=== PATIENT | female | born 1980 | race American Indian/Alaskan Native ===

== ENCOUNTER 2020-08-07 00:08 | Emergency (ER) | payer OTHER ==
[2020-08-07] MEDS ORDERED: SODIUM CHLORIDE 0.9% 1000 ML 1,000 ML IV ONE (02:50)
--- NOTE | 2020-08-07 04:00 | XRay Report ---
CHEST 2 VIEWS INDICATION / CLINICAL INFORMATION: chest pain. COMPARISON: None available. FINDINGS: SUPPORT DEVICES: None. HEART / MEDIASTINUM: No significant abnormality. LUNGS / PLEURA: No significant pulmonary or pleural abnormality. No pneumothorax. ADDITIONAL FINDINGS: No significant additional findings. IMPRESSION: 1. No acute findings. Signer Name: Kameron Rayo MD Signed: 08/07/2020 3:56 AM Workstation Name: [id number]
--- NOTE | 2020-08-07 04:02 | Cat Scan Report ---
CT HEAD WITHOUT CONTRAST INDICATION / CLINICAL INFORMATION: Headache. TECHNIQUE: All CT scans at this location are performed using CT dose reduction for ALARA by means of automated e xposure control. COMPARISON: None available. FINDINGS: HEMORRHAGE: None. EXTRA-AXIAL SPACES: Normal in size and morphology for the patient's age. VENTRICULAR SYSTEM: Normal in size and morphology for the patient's age. CEREBRAL PARENCHYMA: No significant abnormality. No acute territorial infarct. MIDLINE SHIFT OR HERNIATION: None. CEREBELLUM / BRAINSTEM: No significant abnormality. ORBITS: Normal as visualized. SOFT TISSUES of HEAD: No significant abnormality. CALVARIUM: No significant abnormality. PARANASAL SINUSES / MASTOID AIR CELLS: Normal as visualized. ADDITIONAL FINDINGS: None. IMPRESSION: 1. No acute intracranial abnormality. Signer Name: Kameron Rayo MD Signed: 08/07/2020 3:58 AM Workstation Name: [id number]
[2020-08-07 04:16] LABS: Basophils % (Auto) 0.4 % (0.0-1.8); Hematocrit 34.9 % (30.3-42.9); Hemoglobin 12.2 gm/dl (10.1-14.3); Lymphocytes % (Auto) 24.6 % (13.4-35.0); Mean Corpuscular HGB Conc 35 % (30-34); Mean Corpuscular Volume 86 fl (79-97); Monocytes # (Auto) 0.7 K/mm3 (0.0-0.8); Monocytes % (Auto) 7.9 % (0.0-7.3); Platelet Count 296 K/mm3 (140-440); Red Blood Count 4.09 M/mm3 (3.65-5.03); Red Cell Distribution Width 15.8 % (13.2-15.2)
[2020-08-07 04:36] LABS: Erythrocyte Sedimentation Rate 38 mm/Hr (0-20)
[2020-08-07 04:46] LABS: Alanine Aminotransferase 16 units/L (7-56); Albumin 4.3 g/dL (3.9-5); Blood Urea Nitrogen 7 mg/dL (7-17); Calcium 9.3 mg/dL (8.4-10.2); Hemolysis Index 7
[2020-08-07] MEDS ORDERED: KETOROLAC 30 MG/1 ML INJ IV ONE (04:46)
[2020-08-07] MEDS ORDERED: diphenhydrAMINE 50 MG/ML VIAL IV ONE (04:46)
[2020-08-07] MEDS ORDERED: METOCLOPRAMIDE 10 MG/2 ML INJ IV ONE (04:46)
[2020-08-07 04:48] LABS: BUN/Creatinine Ratio 12
--- NOTE | 2020-08-07 05:02 | Emergency Department Report ---
ED Headache HPI - General Chief Complaint: Headache Stated Complaint: HEADACHE/HIGH BP/RAPID HR Time Seen by Provider: 08/07/20 02:50 Source: patient - History of Present Illness Initial Comments: 40-year-old F [place]ian female with past history of hypertension presents emerge department complaining of 6-week history of progressively worsening waxing and waning headaches which over the last couple weeks have worsened in symptoms. She now reports having various episodes presyncope and blurred vision and lack of response to [id number] medication treatments. Reports no fever, chills, sweats, no trauma, no chest pain or palpitations. Quality: moderate Head Injury Location: temporal, occipital Associated Symptoms: denies: confusion, fatigue, facial pain, nausea/vomiting, nasal drainage, seizures, sinus infection, vision changes, weakness Allergies/Adverse Reactions: Allergies No Known Allergies Allergy (Unverified 08/07/20 00:46) Home Medications: Ambulatory Orders Butalb/Acetaminophen/Caffeine [Fioricet 50-300-40 mg CAP] 1 cap PO Q6HR PRN #14 cap 08/07/20 ED Review of Systems ROS: Stated complaint: HEADACHE/HIGH BP/RAPID HR Other details as noted in HPI Comment: All other systems reviewed and negative ED Past Medical Hx - Past Medical History Previous Medical History?: Yes Hx Hypertension: Yes Hx Psychiatric Treatment: Yes (Anxiety) Additional medical history: obesity - Surgical History Past Surgical History?: No - Social History Smoking Status: Never Smoker Substance Use Type: None - Medications Home Medications: Home Medications Medication Instructions Recorded Confirmed Last Taken Type Butalb/Acetaminophen/Caffeine 1 cap PO Q6HR PRN #14 cap 08/07/20 Unknown Rx [Fioricet 50-300-40 mg CAP] ED Physical Exam - General Limitations: No Limitations General appearance: alert, in no apparent distress - Head Head exam: Present: atraumatic, normocephalic - Eye Eye exam: Present: normal appearance, PERRL, EOMI, other (Negative funduscopic examination). Absent: nystagmus Pupils: Present: normal accommodation - ENT ENT exam: Present: mucous membranes moist, TM's normal bilaterally - Neck Neck exam: Present: normal inspection, full ROM - Respiratory Respiratory exam: Present: normal lung sounds bilaterally. Absent: respiratory distress - Cardiovascular Cardiovascular Exam: Present: regular rate, normal rhythm. Absent: systolic murmur, diastolic murmur, rubs, gallop - GI/Abdominal GI/Abdominal exam: Present: soft, normal bowel sounds - Extremities Exam Extremities exam: Present: normal inspection - Back Exam Back exam: Present: normal inspection - Neurological Exam Neurological exam: Present: alert, oriented X3, CN II-XII intact, normal gait - Expanded Neurological Exam Expanded Neurological exam: Present: protecting the airway Patient oriented to: Present: person, place, time Speech: Present: fluid speech Cranial nerves: EOM's Intact: Normal, Tongue Deviation: Normal, Nystagmus: Normal, Facial Sensation: Normal, Facial Palsy with Forehead Movement: Normal, Facial Palsy without Forehead Movement: Normal Best Eye Response ([place]): (4) open spontaneously Best Motor Response ([place]): (6) obeys commands Best Verbal Response (Chelsie): (5) oriented [place] Total: 15 - Psychiatric Psychiatric exam: Present: normal affect, normal mood - Skin Skin exam: Present: warm, dry, intact, normal color. Absent: rash ED Course Vital Signs 08/07/20 08/07/20 08/07/20 00:30 02:55 03:00 Temperature 98.7 F Pulse Rate 111 H 75 77 Respiratory 20 21 Rate Blood Pressure 176/93 Blood Pressure [Left] O2 Sat by Pulse 98 81 L Oximetry 08/07/20 08/07/20 08/07/20 03:14 03:24 03:30 Temperature 98.4 F Pulse Rate 61 91 H 66 Respiratory 12 21 13 Rate Blood Pressure 146/92 146/92 Blood Pressure 146/92 [Left] O2 Sat by Pulse 100 99 99 Oximetry 08/07/20 08/07/20 08/07/20 03:52 03:54 04:00 Temperature Pulse Rate 76 60 Respiratory 9 L 15 19 Rate Blood Pressure 138/75 138/75 Blood Pressure 138/75 [Left] O2 Sat by Pulse 100 99 Oximetry 08/07/20 08/07/20 04:16 04:30 Temperature Pulse Rate 68 62 Respiratory 13 20 Rate Blood Pressure 139/73 146/92 Blood Pressure [Left] O2 Sat by Pulse 99 100 Oximetry ED Medical Decision Making - Lab Data Result diagrams: 08/07/20 03:23 08/07/20 03:23 - EKG Data EKG shows normal: sinus rhythm Rate: normal - EKG Data Interpretation: normal EKG - Radiology Data Radiology results: report reviewed [facility] [address] [place] [id number] Cat Scan Report Signed Patient: VILMA DEAN MR#: [id number] : 1980 Acct:[id number] Age/Sex: 40 / F ADM Date: 08/07/20 Loc: ED Attending Dr: Ordering Physician: LINDA LOMBARDO Date of Service: 08/07/20 Procedure(s): CT head/brain wo con Accession Number(s): [id number] cc: LINDA LOMBARDO CT HEAD WITHOUT CONTRAST INDICATION / CLINICAL INFORMATION: Headache. TECHNIQUE: All CT scans at this location are performed using CT dose reduction for ALARA by means of automated exposure control. COMPARISON: None available. FINDINGS: HEMORRHAGE: None. EXTRA-AXIAL SPACES: Normal in size and morphology for the patient's age. VENTRICULAR SYSTEM: Normal in size and morphology for the patient's age. CEREBRAL PARENCHYMA: No significant abnormality. No acute territorial infarct. MIDLINE SHIFT OR HERNIATION: None. CEREBELLUM / BRAINSTEM: No significant abnormality. ORBITS: Normal as visualized. SOFT TISSUES of HEAD: No significant abnormality. CALVARIUM: No significant abnormality. PARANASAL SINUSES / MASTOID AIR CELLS: Normal as visualized. ADDITIONAL FINDINGS: None. IMPRESSION: 1. No acute intracranial abnormality. Signer Name: Kameron Rayo MD Signed: 08/07/2020 3:58 AM Workstation Name: [id number] Transcribed By: TL Dictated By: Kameron Rayo MD Electronically Authenticated By: Kameron Rayo MD Signed Date/Time: 08/07/20357 DD/ 5 TD/TT: [address] [place] [id number] XRay Report Signed Patient: VILMA DEAN MR#: [id number] : 1980 Acct:[id number] Age/Sex: 40 / F ADM Date: 08/07/20 Loc: ED Attending Dr: Ordering Physician: LINDA LOMBARDO Date of Service: 08/07/20 Procedure(s): XR chest routine 2V Accession Number(s): [id number] cc: LINDA LOMBARDO Fluoro Time In Minutes: CHEST 2 VIEWS INDICATION / CLINICAL INFORMATION: chest pain. COMPARISON: None available. FINDINGS: SUPPORT DEVICES: None. HEART / MEDIASTINUM: No significant abnormality. LUNGS / PLEURA: No significant pulmonary or pleural abnormality. No pneumothorax. ADDITIONAL FINDINGS: No significant additional findings. IMPRESSION: 1. No acute findings. Signer Name: Kameron Rayo MD Signed: 08/07/2020 3:56 AM Workstation Name: [id number] Transcribed By: IZA Dictated By: Kameron Rayo MD Electronically Authenticated By: Kameron Rayo MD Signed Date/Time: 08/07/20355 DD/ 4 Print Cancel - Medical Decision Making Headache This patient presents with a headache most consistent with cephalgia. Differential diagnosis includes migraine versus tension type headache. No headache red flags. Neurologic exam without evidence of meningismus, focal neurologic findings.Based on the patient's history and physical there is very low clinical suspicion for significant intracranial pathology. The headache was NOT sudden onset, NOT maximal at onset, there are NO neurologic findings, the p atient does NOT have a fever, the patient does NOT have any jaw claudication, the patient does NOT endorse a clotting disorder, patient DENIES any trauma or eye pain and the headache is NOT associated with dizziness or ataxia. Presentation not consistent with acute intracranial bleed to include SAH (lack of risk factors, headache history). Presentation not consistent with acute CHIEF LOAD DISPATCHER infection to include meningitis or brain abscess, Temporal arteritis unlikely, as is acute angle closure glaucoma given history and physical findings. Presentation not consistent with other acute, emergent causes of headache at this time. Plan to treat symptomatically with pain medication. No indication for imaging/LP at this time. CT brain was normal Plan: pain medication, , serial reassessment Problem 2 hypertension 32-year-old female with reported uncontrolled hypertension blood pressure is 176/93 upon arrival to the emergency department slightly tachycardic with symptomatic headaches and also some episodes of chest pain/discomfort to the right due to the elevation of the blood pressure associated with the headaches he was having with a presyncope chest pain found to obtain a CT scan of the head which was normal. Also chest x-ray and EKG to evaluate from a cardiovascular standpoint which also is normal. Advised patient to report to follow-up with your primary care provider for definitive treatment and to stop all of the derogatory social habits contributing to that which may be contributing to the symptoms Critical care attestation.: If time is entered above; I have spent that time in minutes in the direct care of this critically ill patient, excluding procedure time. ED Disposition Clinical Impression: Cephalgia, Normal CT scan of head, Dizziness, HTN (hypertension) Disposition: - TO HOME OR SELFCARE Is pt being admited?: No Does the pt Need Aspirin: No Condition: Stable Instructions: Hypertension (ED) Prescriptions: Butalb/Acetaminophen/Caffeine [Fioricet 50-300-40 mg CAP] 1 cap PO Q6HR PRN #14 cap PRN Reason: headache Referrals: DEVIKA LAGUNAS MD [Primary Care Provider] - 3-5 Days
[2020-08-07 05:15] VITALS: BP 142/83
--- NOTE | 2020-08-07 14:04 | Electrocardiograph Report ---
[facility] Test Date: 2020-08-07 Test Time: 02:59:23 Pat Name: VILMA DEAN Department: Room: Gender: F [employer] H[employer] Laborer: NATANAEL : 1980 Requested By: ZIGGY MCGUIRE Order Number: [id number] Reading MD: Malik Carranza Measurements Intervals [place] Rate: 71 P: 61 DC: 169 QRS: 3 QRSD: 86 T: 33 QT: 385 QTc: 420 Interpretive Statements Sinus rhythm No previous ECG available for comparison Electronically Signed On 08-07-2020 11:04:44 PDT by Malik Carranza
== END 2020-08-07 06:37 | disposition home or self-care (01) ==
LOC: ED 00:08
DX: R51.9 Headache, unspecified (principal); R42 Dizziness and giddiness; I10 Essential (primary) hypertension; F41.9 Anxiety disorder, unspecified; Z79.899 Other long term (current) drug therapy
CPT/HCPCS: 36415; 70450; 71046; 80053; 84484; 84703; 85025; 85652; 93005; 96361; 96374; 96375; 99285; J1200; J1885; J2765; J7030